=== PATIENT | female | born 1955 | race Two or more races ===

== ENCOUNTER 2021-08-06 09:39 | Emergency (ER) | payer OTHER ==
[~2021-08-06] VITALS: Ht 152.4 cm; Wt 72.6 kg
--- NOTE | 2021-08-06 09:51 | NUR ---
TO ER BED 17, C/O DIZZINESS AND NAUSEA STARTED THIS MORNING, AAOX3, BREATHING EVEN AND NON LABORED, AWAITING MD ORDERS
[2021-08-06] MEDS ORDERED: MECLIZINE HCL 12.5 MG TABLET PO ONE (10:00)
[2021-08-06] MEDS ORDERED: IV NS 0.9% 1,000 ML BAG IV ONE (10:00)
[2021-08-06] MEDS ORDERED: ONDANSETRON HCL/PF 4 MG/2 ML VIAL IVP ONE (10:00)
[2021-08-06] MEDS ORDERED: MECLIZINE HCL 25 MG TABLET ONE (10:12)
[2021-08-06] MEDS ORDERED: ONDANSETRON HCL/PF 4 MG/2 ML VIAL ONE (10:12)
[2021-08-06 10:42] LABS: BASOPHILS % (AUTO) 0.7 % (0.0-2.0); EOSINOPHILS % (AUTO) 1.5 % (0.0-6.0); HEMATOCRIT 43 % (33-45); HEMOGLOBIN 14.1 g/dL (11.5-14.8); LYMPHOCYTES # (AUTO) 1.9 K/uL (0.8-4.8); LYMPHOCYTES % (AUTO) 26.2 % (20.0-44.0); MEAN CORPUSCULAR HGB CONC 33 g/dl (31.0-36.0); MEAN CORPUSCULAR VOLUME 93 fL (82-100); MONOCYTES # (AUTO) 0.5 K/uL (0.1-1.30); MONOCYTES % (AUTO) 6.7 % (2.0-12.0); NEUTROPHILS # (AUTO) 4.6 K/uL (1.8-8.9); NEUTROPHILS % (AUTO) 64.9 % (43.0-81.0); PLATELET COUNT (AUTO) 246 K/uL (150-450); WHITE BLOOD COUNT (AUTO) 7.1 K/uL (4.3-11.0)
--- NOTE | 2021-08-06 10:51 | NUR ---
UNABLE TO PROVIDE URINE AT THIS TIME
[2021-08-06 11:07] LABS: CALCIUM, SERUM 9.2 mg/dL (8.5-10.1); CARBON DIOXIDE 23 mmol/L (21-32); CHLORIDE 107 mmol/L (98-107); GLUCOSE 117 mg/dL (74-106); POTASSIUM 4.5 mmol/L (3.5-5.1); SODIUM SERUM 141 mmol/L (136-145); UREA NITROGEN, BLOOD 15 mg/dL (7-18)
[2021-08-06 11:09] LABS: ALCOHOL, BLOOD < 3 mg/dL (0-0)
--- NOTE | 2021-08-06 12:31 | NUR ---
URINE COLLECTED AND SENT TO LAB
[2021-08-06 12:41] LABS: THYROID STIMULATING HORMONE 3.604 uIU/mL (0.358-3.74)
--- NOTE | 2021-08-06 12:59 | NUR ---
MOVE SHEET SUBMITTED AND CALLED FOR TELE BED.
[2021-08-06 13:13] LABS: BILIRUBIN,URINE NEGATIVE (NEGATIVE); COLOR,URINE YELLOW (YELLOW); LEUKOCYTE ESTERASE ,URINE TRACE (NEGATIVE); NITRITE, URINE NEGATIVE (NEGATIVE); PROTEIN,URINE NEGATIVE (NEGATIVE); UGLUCOSE NEGATIVE (NEGATIVE); UROBILINOGEN,URINE 0.2 EU/dL (0.2)
--- NOTE | 2021-08-06 13:59 | NUR ---
COVID ANTIGEN SWAB COLLECTED AND SENT TO LAB
--- NOTE | 2021-08-06 14:01 | NUR ---
PT ABULATORY WITHOUT ASSIST WITHOUT N/V/D OR LOSS OF BALANCE
[2021-08-06] MEDS ORDERED: ONDA4TAB5 PO (15:04)
[2021-08-06] MEDS ORDERED: MECL-159 PO (15:04)
[2021-08-06 15:20] LABS: ALBUMIN 3.7 g/dL (3.4-5.0); BILIRUBIN,TOTAL 0.4 mg/dL (0.2-1.0); TOTAL PROTEIN, SERUM 7.8 g/dL (6.4-8.2)
--- NOTE | 2021-08-06 15:55 | NUR ---
IV removed. Catheter intact and site benign. Pressure and 4x4 applied to site. No bleeding noted.Patient discharged to home in stable condition. Written and verbal after care instructions given. Patient verbalizes understanding of instruction.
[2021-08-06 16:00] VITALS: BP 139/78
[2021-08-06 16:40] LABS: BACTERIA,URINE Few /HPF (None Seen); RBC,URINE 0-2 /HPF (0-2)
[2021-08-06 16:41] LABS: MUCUS,URINE Few /LPF (None Seen); SQUAMOUS EPITHELIAL CELL,UR Few /HPF (None Seen)
== END 2021-08-06 16:01 | disposition home or self-care (01) ==
LOC: ER 09:42
DX: R42 Dizziness and giddiness (principal); R53.1 Weakness; R11.2 Nausea with vomiting, unspecified; Z20.822 Contact with and (suspected) exposure to COVID-19
CPT/HCPCS: 36415; 70450; 71045; 80048; 80076; 80307; 80320; 81001; 83690; 84443; 84484; 85025; 87426; 93005; 96361; 96374; 99285; C9803; J2405; J7030; J8597; G0480